=== PATIENT | male | born 1950 | race Two or more races ===

== ENCOUNTER 2022-11-05 18:40 | Inpatient (IN) | payer MEDICARE, OTHER ==
[~2022-11-05] VITALS: Ht 182.9 cm; Wt 92.8 kg
--- NOTE | 2022-11-05 18:51 | NUR ---
PT IS IN ROOM #2B. DR MORA EVALUATED THE PT.
[2022-11-05] MEDS ORDERED: METFORMIN (18:54)
[2022-11-05] MEDS ORDERED: KEPPRA (18:54)
[2022-11-05] MEDS ORDERED: METOPROLOL (18:54)
[2022-11-05] MEDS ORDERED: VANCOMYCIN IV 1,000 MG in IV DEXTROSE 5% 250 ML IV ONE (19:00)
[2022-11-05] MEDS ORDERED: IV NORMAL SALINE 1000 ML BAG IV ONE (19:00)
[2022-11-05] MEDS ORDERED: CEFEPIME HCL 1 G in IV DEXTROSE 5% 50 ML IV ONE (19:00)
--- NOTE | 2022-11-05 19:05 | NUR ---
Got report from Lemuel WATTS.
[2022-11-05] MEDS ORDERED: IV NORMAL SALINE 250 ML IV ONE (19:06)
[2022-11-05] MEDS ORDERED: SWABABLE VALVE TRANSFER SET EA MC ONE (19:06)
[2022-11-05] MEDS ORDERED: IOHEXOL 350 100 ML INFUS..BTL ONE (19:07)
[2022-11-05 19:20] LABS: HEMATOCRIT 31.3 % (36.7-47.1); MEAN CORPUSCULAR HEMOGLOBIN 21.5 uug (23.8-33.4); MEAN CORPUSCULAR VOLUME 67.4 fL (73.0-96.2); PLATELET COUNT (AUTO) 434 K/uL (152-348)
[2022-11-05] MEDS ORDERED: VANCOMYCIN IV 200 ML ONE (19:25)
[2022-11-05] MEDS ORDERED: CEFEPIME HCL 1 G VIAL ONE (19:25)
[2022-11-05 19:38] LABS: ALANINE AMINOTRANSFERASE 15 U/L (16-63); ALKALINE PHOSPHATASE 58 U/L (50-136); ASPARTATE AMINOTRANSFERASE 13 U/L (15-37); BILIRUBIN,DIRECT 0.1 mg/dL (0.0-0.2); BILIRUBIN,TOTAL 0.3 mg/dL (0.2-1.0); CARBON DIOXIDE 19 mmol/L (21-32); CHLORIDE 90 mmol/L (98-107); POTASSIUM 4.2 mmol/L (3.5-5.1); TOTAL PROTEIN, SERUM 6.7 g/dL (6.4-8.2)
--- NOTE | 2022-11-05 19:45 | NUR ---
Patient's daughter at bedside with patient. Patient is resting in bed rise and fall of chest noted.
[2022-11-05 19:48] LABS: UREA NITROGEN, BLOOD 94 mg/dL (7-18)
--- NOTE | 2022-11-05 20:21 | NUR ---
called [facility] for panel call. awaiting for Shanelle Lott NP to call back.
--- NOTE | 2022-11-05 21:48 | NUR ---
[facility] answering service called, was told on-call in now Naye GOMEZ
[2022-11-05 22:35] LABS: SITE, VBG LEFT BRACHIAL; VENT MODE, VBG ROOM AIR
--- NOTE | 2022-11-05 22:53 | NUR ---
Called third floor and gave report Mendoza WATTS.
--- NOTE | 2022-11-05 23:31 | NUR ---
Alexandra was transfererd upstairs to the thrid floor via gurney. STEFANIE Donaldson made aware of patient's arrival.
--- NOTE | 2022-11-05 23:45 | NUR ---
Received patient via gurney from ER. Pictures taken of left toe wound, dressed and bandaged. Patient in no acute distress, vitals WNL, denies SOB. Patient placed on tele monitor, sinus rhythm/sinus tachy. Will continue to monitor.
[2022-11-06] VITALS (28 sets, daily range): BP systolic 77–157; BP diastolic 38–88; TEMP 97.4–98.3; O2SAT 93–99
[2022-11-06 00:25] LABS: *BILIRUBIN,URIN NEGATIVE (NEGATIVE); *BLOOD, URINE 1+ (NEGATIVE); *CLARITY,URINE CLEAR (CLEAR); *COLOR,URINE YELLOW (YELLOW); *KETONES,URINE NEGATIVE (NEGATIVE); *UROBILINOGEN,URINE 0.2 E.U./dl (NORMAL); LEUKOCYTE ESTERASE ,URINE NEGATIVE (NEGATIVE); NITRITE, URINE NEGATIVE (NEGATIVE); UGLUCOSE NEGATIVE (NEGATIVE)
--- NOTE | 2022-11-06 00:45 | NUR ---
Lexy (Optical Scientist) spoke to daughter in regards to Nuclear Medicine Perfusion Lung Scan, Daughter verbally consented for patient to receive this treatment as the patient will not sign due to jehovah's witness beliefs (Shabbat). After speaking to patients daughter and daughter verbalizing consent for father to proceed with ordered procedure I witnessed consent. Daughter specified that patient is Okay to have the procedure, however can not physically sign due to Shabbat. Telephone consent with daughter, and another RN at bedside to witness.
[2022-11-06 00:58] LABS: WBC,URINE 0-3 /HPF (0-3)
[2022-11-06 00:59] LABS: BACTERIA,URINE MODERATE /HPF (NONE SEEN); SQUAMOUS EPITHELIAL CELL,UR MODERATE /HPF (NONE SEEN); URINE AMORPHOUS URATE MODERATE /HPF
[2022-11-06] MEDS ORDERED: REMEDY ESSENTIAL ZINC PASTE 113 GM TP PRN (02:45)
[2022-11-06] MEDS ORDERED: ALBUTEROL SULFATE 2.5 MG/3 ML NEBU NEB PRN (02:45)
[2022-11-06] MEDS ORDERED: DEXTROSE 50% 50 ML DISP.SYRIN IV PRN ×2 (02:45→14:45)
[2022-11-06] MEDS ORDERED: ONDANSETRON 4 MG/2 ML VIAL IV PRN (02:45)
[2022-11-06] MEDS ORDERED: IPRATROPIUM BROMIDE 0.5 MG/2.5 ML NEBU NEB PRN (02:45)
[2022-11-06] MEDS ORDERED: CEFEPIME HCL 1 G VIAL ONE (05:37)
[2022-11-06] MEDS ORDERED: CEFEPIME HCL 1 G in IV DEXTROSE 5% 50 ML IV SCH (06:00)
[2022-11-06] MEDS: PANTOPRAZOLE SODIUM 40 MG TABLET.DR PO SCH (06:36)
[2022-11-06] MEDS: BLOOD SUGAR DIAGNOSTIC 1 EACH STRIP VI SCH ×4 (06:41→21:00)
[2022-11-06 06:42] LABS: MEAN CORPUSCULAR HEMOGLOBIN 21.4 uug (23.8-33.4); MEAN CORPUSCULAR VOLUME 66.9 fL (73.0-96.2); PLATELET COUNT (AUTO) 392 K/uL (152-348)
[2022-11-06 06:57] LABS: CREATINE KINASE, TOTAL 52 U/L (39-308)
[2022-11-06] MEDS: levETIRAcetam 500 MG TABLET PO SCH ×2 (08:11→21:04)
[2022-11-06] MEDS ORDERED: VANCOMYCIN IV 750 MG in IV DEXTROSE 5% 250 ML IV ONE (09:00)
[2022-11-06 09:02] LABS: CARBON DIOXIDE 18 mmol/L (21-32); CHLORIDE 98 mmol/L (98-107); CREATININE 3.8 mg/dL (0.6-1.3); MAGNESIUM 1.4 mg/dL (1.8-2.4); PHOSPHOROUS 3.3 mg/dL (2.5-4.9); POTASSIUM 4.1 mmol/L (3.5-5.1)
[2022-11-06 09:12] LABS: THYROID STIMULATING HORMONE 1.794 mIU/mL (0.358-3.740)
[2022-11-06 09:20] LABS: UREA NITROGEN, BLOOD 89 mg/dL (7-18)
[2022-11-06 10:01] LABS: CARBON DIOXIDE 19 mmol/L (21-32); CHLORIDE 99 mmol/L (98-107); CREATININE 3.7 mg/dL (0.6-1.3)
[2022-11-06 10:05] LABS: UREA NITROGEN, BLOOD 88 mg/dL (7-18)
[2022-11-06 10:12] LABS: CHOLESTEROL 115 mg/dL (<200); HDL CHOLESTEROL 20 mg/dL (40-60); TRIGLYCERIDES 192 MG/DL (30-150)
--- NOTE | 2022-11-06 11:38 | NUR ---
Pt's daughter at bedside pt. was not covered with Insulin for Sliding scale. As stated by daughter "my dad is not eating, his appetite is been low". medication hold pt. has not eaten.
--- NOTE | 2022-11-06 12:10 | NUR ---
Pt. with sbp in the low to mid-80's placed on reverse Trendelenburg sbp of 88/39 HR of 88 and saturation of 93% on RA patient with c/of of severe weakness. oriented to name. Pt's daughter at bedside. Addendum: 11/06/22 at 1222 by QUAN HUTCHINS RN Attending Dr. Booth called to be notified message left with automatic spinning lathe operator awaiting call back.
--- NOTE | 2022-11-06 12:26 | NUR ---
A call back from Dr. Booth report given orders for 1 liter NS bolus received as well as to informed ID to see patient. As stated by MD. if SBP does not go above 90 may start pt. on levophed.
[2022-11-06] MEDS ORDERED: IV NS 1000 ML 1,000 ML IV ONE (12:30)
--- NOTE | 2022-11-06 12:47 | NUR ---
When bolus started pt. with c/of pain at IV site area with no s/s of infiltration or leaking IV line patent both daughter at bedside and they were informed that new IV line will be inserted and both agreed to pt's complains. 10 minutes later pt. refuse new IV insertion stating the old one is not painful anymore. Both daughters requested procedure to be stop.
[2022-11-06] MEDS: IV NS 1000 ML 1,000 ML IV PRN ×2 (12:50→22:53)
[2022-11-06 12:51] LABS: *CREATININE,URINE 122.9 mg/dL (30-125); *URINE TOTAL PROTEIN RANDOM 57.9 mg/dL (<150/24HR)
--- NOTE | 2022-11-06 13:15 | NUR ---
With bolus almost finished pt's sbp of 77/49 HR of 88 patient sleeping intermittently as requested by one of the daughters at bedside "lets wait for fluid to be finished and give him a chance to increase SBP"
[2022-11-06] MEDS ORDERED: METF-442 PO (13:18)
[2022-11-06] MEDS ORDERED: TRAM50TA2 PO (13:19)
[2022-11-06] MEDS ORDERED: PREG75CA PO (13:19)
[2022-11-06] MEDS ORDERED: HYDR-3972 PO (13:20)
[2022-11-06] MEDS ORDERED: GLIP5TAB13 PO (13:21)
[2022-11-06] MEDS ORDERED: ALLO100T56 GT (13:21)
[2022-11-06] MEDS ORDERED: METO-357 PO (13:22)
[2022-11-06] MEDS ORDERED: LISI-782 PO (13:23)
[2022-11-06] MEDS ORDERED: CELE200C PO (13:23)
[2022-11-06] MEDS ORDERED: PIOG30TA10 PO (13:24)
[2022-11-06] MEDS ORDERED: DUTA0.5C37 PO (13:25)
[2022-11-06] MEDS ORDERED: TAMS-3 PO (13:25)
[2022-11-06] MEDS ORDERED: LEVE100S GT (13:25)
--- NOTE | 2022-11-06 13:26 | NUR ---
a call to ID services as requested by Dr. Escamilla to informed Clinton of consult ordered by attending. I spoke with Md on the phone and as stated "I'll see the patient tomorrow".
[2022-11-06] MEDS ORDERED: NOREPINEPHRINE BITARTRATE 32 MG in IV NORMAL SALINE 218 ML IV PRN (13:30)
--- NOTE | 2022-11-06 14:11 | NUR ---
Spoke with Dr. Booth orders for stag ABG received and to transfer pt. ICU status start levophed to target MAP of 65 or above.
[2022-11-06 14:26] LABS: ABG HCO3 14.2 mmol/L; ABG PCO2 25.7 mmHg (35.0-45.0); ABG PH 7.361 (7.350-7.450); ABG PO2 86.6 mmHg (75.0-100.0); ABG SITE LEFT BRACHIAL; ABG TOTAL HEMOGLOBIN 8.8 G/dL (13.5-18.0); COHb 0.5 % (0.5-1.5); MetHb 0.2 % (0.0-1.5); O2Hb 94.5 % (94.0-97.0); VENT MODE ROOM AIR
[2022-11-06] MEDS ORDERED: INSULIN REGULAR, HUMAN 300 UNIT/3 ML VIAL SQ PRN (14:45)
--- NOTE | 2022-11-06 14:45 | NUR ---
Patient brought down to the emergency room upgraded to ICU status and started on levophed drip as ordered. Pt's daughter Caprice Santos at bedside.
[2022-11-06] MEDS ORDERED: SODIUM BICARBONATE 8.4% 50 MEQ/50 ML DISP.SYRIN IV ONE (15:00)
[2022-11-06 16:20] LABS: EOSINOPHILS % (MANUAL) 4 % (0-8); LYMPHOCYTES % (MANUAL) 7 % (20-40); MONOCYTES % (MANUAL) 13 % (2-10); NEUTROPHILS % (MANUAL) 76 % (42-75)
[2022-11-06] MEDS ORDERED: BLOOD SUGAR DIAGNOSTIC 1 EACH STRIP VI SCH (16:30)
[2022-11-06] MEDS ORDERED: METRONIDAZOLE 500 MG TABLET ONE ×2 (17:18→20:58)
[2022-11-06] MEDS: METRONIDAZOLE 500 MG TABLET PO SCH ×2 (17:22→21:04)
[2022-11-06] MEDS: SODIUM HYPOCHLORITE 0.125% (QUARTER STRENGTH) 473 ML BOTTLE TP SCH (17:25)
[2022-11-06] MEDS: INSULIN REGULAR, HUMAN 300 UNIT/3 ML VIAL SQ PRN ×2 (17:35→21:10)
[2022-11-06] MEDS ORDERED: levETIRAcetam 250 MG TABLET ONE (20:58)
[2022-11-06] MEDS: REMEDY ESSENTIAL ZINC PASTE 113 GM TOP PRN (22:32)
[2022-11-07] VITALS (32 sets, daily range): BP systolic 89–150; BP diastolic 40–76; TEMP 97.9–98.7; O2SAT 95–98
--- NOTE | 2022-11-07 00:01 | NUR ---
Explained to dtr's via telephone; pt's sodium is already low & that by drinking large amounts 'Free H2O,' would not be good, he would deplete more sodium.
[2022-11-07 04:59] LABS: HEMATOCRIT 30.1 % (36.7-47.1); MEAN CORPUSCULAR HEMOGLOBIN 21.6 uug (23.8-33.4); MEAN CORPUSCULAR VOLUME 67.8 fL (73.0-96.2); PLATELET COUNT (AUTO) 440 K/uL (152-348)
[2022-11-07 05:49] LABS: MAGNESIUM 1.3 mg/dL (1.8-2.4); PHOSPHOROUS 2.5 mg/dL (2.5-4.9)
[2022-11-07 05:55] LABS: CARBON DIOXIDE 23 mmol/L (21-32); CHLORIDE 108 mmol/L (98-107); CREATININE 1.9 mg/dL (0.6-1.3); POTASSIUM 3.5 mmol/L (3.5-5.1); UREA NITROGEN, BLOOD 46 mg/dL (7-18)
[2022-11-07 05:56] LABS: ALKALINE PHOSPHATASE 58 U/L (50-136); ASPARTATE AMINOTRANSFERASE 17 U/L (15-37); BILIRUBIN,TOTAL 0.3 mg/dL (0.2-1.0)
[2022-11-07 05:57] LABS: ALANINE AMINOTRANSFERASE 14 U/L (16-63); TOTAL PROTEIN, SERUM 6.3 g/dL (6.4-8.2)
[2022-11-07] MEDS ORDERED: METRONIDAZOLE 500 MG TABLET ONE (06:13)
[2022-11-07] MEDS: METRONIDAZOLE 500 MG TABLET PO SCH (06:17)
[2022-11-07 06:20] LABS: EOSINOPHILS % (MANUAL) 3 % (0-8); LYMPHOCYTES % (MANUAL) 8 % (20-40); MONOCYTES % (MANUAL) 6 % (2-10); NEUTROPHILS % (MANUAL) 83 % (42-75)
[2022-11-07] MEDS ORDERED: HEPARIN SODIUM,PORCINE 5,000 UNITS/ML VIAL ONE ×2 (06:41)
[2022-11-07] MEDS ORDERED: HEPARIN/D5W DRIP 500 ML ONE (06:42)
[2022-11-07] MEDS ORDERED: HEPARIN/D5W DRIP 500 ML IV PRN (07:00)
[2022-11-07] MEDS: PANTOPRAZOLE SODIUM 40 MG TABLET.DR PO SCH ×2 (07:00→08:02)
[2022-11-07] MEDS ORDERED: HEPARIN SODIUM,PORCINE 5,000 UNITS/ML VIAL IV ONE (07:00)
--- NOTE | 2022-11-07 07:00 | NUR ---
the I&O documented by me at 0700 I did it as a request from Donna Beasley who forgot to documented.
[2022-11-07] MEDS ORDERED: CEFEPIME HCL 1 G in IV DEXTROSE 5% 50 ML IV SCH (08:00)
[2022-11-07] MEDS ORDERED: VANCOMYCIN IV 1,000 MG in IV DEXTROSE 5% 250 ML IV ONE (08:00)
[2022-11-07] MEDS: BLOOD SUGAR DIAGNOSTIC 1 EACH STRIP VI SCH ×4 (08:01→21:00)
[2022-11-07] MEDS ORDERED: PANTOPRAZOLE SODIUM 40 MG TABLET.DR PO ONE (08:01)
[2022-11-07] MEDS: CEFEPIME HCL 2 G in IV DEXTROSE 5% 100 ML IV SCH ×2 (08:06→20:07)
[2022-11-07] MEDS ORDERED: levETIRAcetam 250 MG TABLET ONE (08:19)
[2022-11-07] MEDS: SODIUM HYPOCHLORITE 0.125% (QUARTER STRENGTH) 473 ML BOTTLE TP SCH ×2 (08:20→17:01)
[2022-11-07] MEDS: levETIRAcetam 500 MG TABLET PO SCH ×2 (08:20→21:48)
[2022-11-07] MEDS: INSULIN REGULAR, HUMAN 300 UNIT/3 ML VIAL SQ PRN ×3 (08:22→16:57)
--- NOTE | 2022-11-07 08:30 | NUR ---
Pt seen by Dr. Clay
--- NOTE | 2022-11-07 09:02 | NUR ---
Pt seen by ID, left foot wound cultured and dressing changed. Tissue dark pink, scant drainage.
--- NOTE | 2022-11-07 11:00 | NUR ---
RFA 18g HL not patent, d/c'd. New 20g saline lock inserted, receiving Magnesioum replacement per ordew #1 of 3 doses
--- NOTE | 2022-11-07 11:00 | NUR ---
Pt seen and examined by Dr Nicholas, order to d/c heparin gtt. afternoon labs PTT canceled.
[2022-11-07] MEDS: VANCOMYCIN FOR PO/GT/NG USE PO SCH ×2 (12:03→17:32)
[2022-11-07] MEDS: MAGNESIUM SULFATE/D5W 100 ML IV SCH ×3 (13:00→15:30)
--- NOTE | 2022-11-07 14:00 | NUR ---
VSS, Loco gtt remains at low dose SBP maintained >100. Pt with frequent liquid stools, skin care provided, moisture barrier to area, skin remains intact.
[2022-11-07] MEDS ORDERED: MAGNESIUM SULFATE/D5W 200 ML ONE (14:31)
--- NOTE | 2022-11-07 15:09 | NUR ---
Daughter in to visit, updated on Pts condition verbalized understanding
[2022-11-07] MEDS ORDERED: SEMA1PEN SQ (15:55)
[2022-11-07] MEDS ORDERED: LEVE500T9 PO (16:02)
[2022-11-07] MEDS ORDERED: METO-356 PO (16:03)
[2022-11-07] MEDS ORDERED: METO-357 PO (16:04)
[2022-11-07] MEDS ORDERED: ASPI81TA31 PO (16:09)
[2022-11-07] MEDS ORDERED: CHOL100045 PO (16:11)
[2022-11-07] MEDS ORDERED: THIA100T88 PO (16:16)
[2022-11-07] MEDS ORDERED: LORA10TA61 PO (16:16)
[2022-11-07] MEDS ORDERED: ACETAMINOPHEN 650 MG SUPP.RECT RC ONE (16:41)
[2022-11-07] MEDS: CLOTRIMAZOLE 1% CREAM 30 GM TUBE TOP SCH (17:00)
--- NOTE | 2022-11-07 17:00 | NUR ---
VSS, pt awake denies pain, Right foot dressing changed, wound dark red, scant drainage, tolerated well.
[2022-11-07] MEDS ORDERED: CEFEPIME HCL 1 G VIAL ONE (19:59)
--- NOTE | 2022-11-07 20:00 | NUR ---
0800 received in bed, able to make needs known no signs of distress, called family member and update them about patient progress on Levophed 0.03 mcg and NS @100cc blood pressure 102 /67 heart rate 77 able to move all extremities, sodium is 140 1000 family is at bed side, patient refused to eat and AccuStick.
[2022-11-07] MEDS ORDERED: LORATADINE 10 MG TAB.RAPDIS PO SCH (21:00)
[2022-11-07] MEDS: THIAMINE HCL 100 MG TABLET PO SCH (21:48)
[2022-11-07] MEDS: TAMSULOSIN HCL 0.4 MG CAP.SR.24H PO SCH (21:48)
[2022-11-07] MEDS: IV NS 1000 ML 1,000 ML IV PRN (23:06)
[2022-11-08] VITALS (32 sets, daily range): BP systolic 94–139; BP diastolic 41–80; TEMP 97.3–98.8; O2SAT 93–97
[2022-11-08] MEDS: VANCOMYCIN FOR PO/GT/NG USE PO SCH ×5 (00:15→23:30)
--- NOTE | 2022-11-08 04:00 | NUR ---
refused blood sugar and bed bath patient's sister try convincing him to eat and to have a bed bath, but patient refused asked patient if he wants pain medication he said no but grimace when touch. 0600 called family to talk to patient to get blood draw and to have a bath, he continued to refuse. Levophed decreased to 0.02 mcg.urine output is 60cc/hr x2 BM smear.
[2022-11-08] MEDS: PANTOPRAZOLE SODIUM 40 MG TABLET.DR PO SCH (06:20)
[2022-11-08] MEDS ORDERED: glipiZIDE 5 MG TABLET PO SCH (07:30)
[2022-11-08 07:40] LABS: CREATININE 1.1 mg/dL (0.6-1.3); MAGNESIUM 1.3 mg/dL (1.8-2.4); POTASSIUM 3.3 mmol/L (3.5-5.1)
[2022-11-08] MEDS: BLOOD SUGAR DIAGNOSTIC 1 EACH STRIP VI SCH ×4 (07:56→20:29)
[2022-11-08] MEDS: INSULIN REGULAR, HUMAN 300 UNIT/3 ML VIAL SQ PRN ×3 (07:58→17:17)
[2022-11-08] MEDS: levETIRAcetam 500 MG TABLET PO SCH ×2 (08:00→20:10)
[2022-11-08] MEDS: CEFEPIME HCL 2 G in IV DEXTROSE 5% 100 ML IV SCH ×3 (08:00→22:41)
[2022-11-08] MEDS: DUTASTERIDE 0.5 MG CAPSULE PO SCH (08:00)
[2022-11-08] MEDS: ASPIRIN 81 MG TAB.CHEW PO SCH (08:02)
[2022-11-08] MEDS: VANCOMYCIN IV 1,250 MG in IV DEXTROSE 5% 250 ML IV SCH ×2 (08:08→20:09)
[2022-11-08] MEDS: CLOTRIMAZOLE 1% CREAM 30 GM TUBE TOP SCH ×3 (08:08→20:19)
[2022-11-08] MEDS: SODIUM HYPOCHLORITE 0.125% (QUARTER STRENGTH) 473 ML BOTTLE TP SCH ×2 (08:09→20:14)
[2022-11-08] MEDS ORDERED: POTASSIUM CHLORIDE 20 MEQ TAB.PRT.SR PO ONE (08:30)
[2022-11-08] MEDS: MAGNESIUM SULFATE/D5W 100 ML IV SCH ×2 (08:35→09:45)
[2022-11-08] MEDS ORDERED: LISINOPRIL 5 MG TABLET PO SCH (09:00)
[2022-11-08] MEDS ORDERED: levETIRAcetam 500 MG TABLET PO SCH (09:00)
--- NOTE | 2022-11-08 10:37 | NUR ---
Pt.family at bedside,updated with pt.condition and plan of care.
[2022-11-08] MEDS: IV NS 1000 ML 1,000 ML IV PRN (13:50)
--- NOTE | 2022-11-08 14:09 | NUR ---
WOUND CARE CONSULT: PT PRESENTS WITH LEFT FOOT DRESSING WHICH IS DRY AND INTACT. SURGICAL WOUND FOLLOWED BY DR FAM. DEFER TO DPM FOR WOUND TREATMENT PLAN OF LOWER EXTREMITY. SLIGHT RASH NOTED TO BUTTOCKS. RECOMMENDATIONS MADE FOR SKIN PROTECTION. DISCUSSED WITH NURSING STAFF. MD IN AGREEMENT WITH PLAN OF CARE.
[2022-11-08] MEDS ORDERED: CLOTRIMAZOLE 1% CREAM 30 GM TUBE TOP SCH (17:00)
[2022-11-08] MEDS: glipiZIDE 5 MG TABLET PO SCH (17:18)
[2022-11-08] MEDS: GLUCERNA SHAKE 237 ML CAN PO SCH (17:19)
[2022-11-08] MEDS: REMEDY ESSENTIAL ZINC PASTE 113 GM TOP PRN (17:46)
--- NOTE | 2022-11-08 20:00 | NUR ---
Received in bed awake alert x4 able to make needs known, room air saturation is 95% pain 6/10 left knee, tramadol given po left foot dressing clean and dry lungs clear, incontinent stool x1 cleaned and turned left side. update family regarding patient process.
[2022-11-08] MEDS: THIAMINE HCL 100 MG TABLET PO SCH (20:10)
[2022-11-08] MEDS: TAMSULOSIN HCL 0.4 MG CAP.SR.24H PO SCH (20:10)
[2022-11-08] MEDS: LORATADINE 10 MG TABLET PO SCH (20:11)
[2022-11-08] MEDS: MUPIROCIN 2% OINT 22 GM TUBE NS SCH (20:14)
[2022-11-08] MEDS: TRAMADOL HCL 50 MG TABLET PO PRN (20:23)
[2022-11-09] VITALS (7 sets, daily range): BP systolic 100–130; BP diastolic 56–81; TEMP 97–98.5; O2SAT 94–97
[2022-11-09] MEDS: VANCOMYCIN FOR PO/GT/NG USE PO SCH ×3 (05:55→17:31)
[2022-11-09] MEDS: CEFEPIME HCL 2 G in IV DEXTROSE 5% 100 ML IV SCH ×2 (05:55→14:30)
[2022-11-09] MEDS: IV NS 1000 ML 1,000 ML IV PRN (05:59)
[2022-11-09] MEDS: PANTOPRAZOLE SODIUM 40 MG TABLET.DR PO SCH (06:30)
[2022-11-09] MEDS: TRAMADOL HCL 50 MG TABLET PO PRN (07:19)
[2022-11-09] MEDS: BLOOD SUGAR DIAGNOSTIC 1 EACH STRIP VI SCH ×4 (07:30→21:56)
[2022-11-09] MEDS: PROTEIN SUPPLEMENT (PROSTAT) 30 ML LIQUID PO SCH ×2 (08:00→09:40)
[2022-11-09] MEDS: GLUCERNA SHAKE 237 ML CAN PO SCH ×2 (08:00→17:00)
[2022-11-09] MEDS: VANCOMYCIN IV 1,250 MG in IV DEXTROSE 5% 250 ML IV SCH (08:31)
[2022-11-09] MEDS ORDERED: METOPROLOL SUCCINATE XL 25 MG TAB.SR.24H PO SCH (09:00)
[2022-11-09] MEDS ORDERED: METOPROLOL SUCCINATE XL 50 MG TAB.SR.24H PO SCH (09:00)
[2022-11-09] MEDS ORDERED: LISINOPRIL 5 MG TABLET PO SCH (09:00)
[2022-11-09] MEDS: ASPIRIN 81 MG TAB.CHEW PO SCH (09:38)
[2022-11-09] MEDS: levETIRAcetam 500 MG TABLET PO SCH ×2 (09:38→21:41)
[2022-11-09] MEDS: glipiZIDE 5 MG TABLET PO SCH ×2 (09:39→17:31)
[2022-11-09] MEDS: DUTASTERIDE 0.5 MG CAPSULE PO SCH (09:39)
[2022-11-09] MEDS: MUPIROCIN 2% OINT 22 GM TUBE NS SCH ×2 (09:41→21:48)
[2022-11-09] MEDS: SODIUM HYPOCHLORITE 0.125% (QUARTER STRENGTH) 473 ML BOTTLE TP SCH ×2 (09:44→21:50)
[2022-11-09] MEDS: CLOTRIMAZOLE 1% CREAM 30 GM TUBE TOP SCH ×4 (09:46→21:00)
[2022-11-09] MEDS: METOPROLOL TARTRATE 25 MG TABLET PO SCH ×2 (11:15→21:45)
--- NOTE | 2022-11-09 11:23 | NUR ---
per case management, CTA to be done November 10.
[2022-11-09] MEDS: ACETAMINOPHEN 325 MG TABLET PO PRN (12:29)
--- NOTE | 2022-11-09 12:29 | NUR ---
Patient c/o left hand pain 08/16, medicated as per order with tylenol 650 . Family remains at bedside updated on plan of care, will continue to monitor.
[2022-11-09] MEDS: INSULIN REGULAR, HUMAN 300 UNIT/3 ML VIAL SQ PRN (17:38)
[2022-11-09] MEDS ORDERED: POTASSIUM CHLORIDE 10 MEQ TAB.PRT.SR PO ONE (17:45)
[2022-11-09] MEDS ORDERED: CEFEPIME HCL 2 G in IV DEXTROSE 5% 100 ML IV SCH (18:00)
[2022-11-09 19:31] LABS: POTASSIUM 3.6 mmol/L (3.5-5.1)
--- NOTE | 2022-11-09 20:00 | NUR ---
Received patient laying in bed with sister at bedside. Patient in no acute distress, vitals WNL, denies SOB. Patient placed on tele monitor, sinus rhythm. Will continue to monitor and continue plan of care.
[2022-11-09] MEDS: TAMSULOSIN HCL 0.4 MG CAP.SR.24H PO SCH (21:41)
[2022-11-09] MEDS: DOXYCYCLINE HYCLATE 100 MG TABLET PO SCH (21:41)
[2022-11-09] MEDS: THIAMINE HCL 100 MG TABLET PO SCH (21:45)
[2022-11-09] MEDS: LORATADINE 10 MG TABLET PO SCH (21:46)
[2022-11-10] VITALS: BP 130/57; TEMP 96.5; TEMP 98.6; O2SAT 96
[2022-11-10] MEDS: VANCOMYCIN FOR PO/GT/NG USE PO SCH ×5 (00:50→23:59)
[2022-11-10] MEDS: HYDROCODONE/APAP 5-325MG TABLET PO PRN ×2 (00:59→06:39)
[2022-11-10] MEDS ORDERED: CEFEPIME HCL 2 G in IV DEXTROSE 5% 100 ML IV SCH (02:00)
[2022-11-10] MEDS ORDERED: CEFEPIME HCL 1 G VIAL ONE (02:08)
[2022-11-10 04:00] VITALS: BP 112/54; TEMP 98.7; O2SAT 95
[2022-11-10] MEDS: PANTOPRAZOLE SODIUM 40 MG TABLET.DR PO SCH (06:07)
[2022-11-10] MEDS: BLOOD SUGAR DIAGNOSTIC 1 EACH STRIP VI SCH ×4 (06:12→20:53)
[2022-11-10] MEDS: IV NS 1000 ML 1,000 ML IV PRN (06:29)
[2022-11-10 06:49] LABS: HEMATOCRIT 27.8 % (36.7-47.1); MEAN CORPUSCULAR HEMOGLOBIN 21.6 uug (23.8-33.4); MEAN CORPUSCULAR VOLUME 66.9 fL (73.0-96.2); PLATELET COUNT (AUTO) 350 K/uL (152-348)
--- NOTE | 2022-11-10 07:07 | NUR ---
Verified =onsent via daughter Addendum: 11/10/22 at 0708 by SUNDAY VEGA RN Wrong Patient
--- NOTE | 2022-11-10 07:08 | NUR ---
Spoke to daughter, Hans. Asked daughter to explain procedure of CT Angiogram of heart to patient. Witnessed patient signing consent.
[2022-11-10 07:17] LABS: ALANINE AMINOTRANSFERASE 16 U/L (16-63); ALKALINE PHOSPHATASE 49 U/L (50-136); ASPARTATE AMINOTRANSFERASE 26 U/L (15-37); BILIRUBIN,TOTAL 0.3 mg/dL (0.2-1.0); CARBON DIOXIDE 25 mmol/L (21-32); CHLORIDE 102 mmol/L (98-107); PHOSPHOROUS 1.4 mg/dL (2.5-4.9); POTASSIUM 3.1 mmol/L (3.5-5.1); TOTAL PROTEIN, SERUM 5.7 g/dL (6.4-8.2); UREA NITROGEN, BLOOD 8 mg/dL (7-18)
--- NOTE | 2022-11-10 07:30 | NUR ---
NIGHT NURSE REPORT RECEIVED: 1) MENTAL STATE: AO x 3 - speaks Farsi only. 2) BREATHING: Patient on RA - , sat in the high 90s. No sign of distress observed. 3) SAFETY: Bedbound - Bed in low position, bed alarm activated, floor free of clutter and call garay within reach. 4) CIRCULATION: No signs of cyanosis observed. 5) MOBILITY: Patient on bed rest - needs maximum assistance with all care. 6) BOWEL MOVEMENT: No Bowels at the time of this report. 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 8) SKIN: Patient has peeling skin to the sacral and scrotum 9) BLOOD SUGAR: - 111 this morning no cover required. 10) PLAN: (i) Will continue to treat patient accordingly. (ii) Due CT Angio at [place]:Consent signed and checklist completed.
[2022-11-10 08:00] VITALS: BP 131/51; TEMP 98.1; O2SAT 96
[2022-11-10 08:06] LABS: IRON, SERUM 14 ug/dL (50-175)
[2022-11-10] MEDS: PROTEIN SUPPLEMENT (PROSTAT) 30 ML LIQUID PO SCH (08:13)
[2022-11-10] MEDS: GLUCERNA SHAKE 237 ML CAN PO SCH (08:13)
[2022-11-10] MEDS ORDERED: POTASSIUM CHLORIDE 20 MEQ TAB.PRT.SR PO ONE (08:30)
[2022-11-10] MEDS: CLOTRIMAZOLE 1% CREAM 30 GM TUBE TOP SCH ×4 (09:00→20:51)
[2022-11-10] MEDS: METOPROLOL TARTRATE 25 MG TABLET PO SCH ×2 (09:00→20:45)
[2022-11-10] MEDS: ASPIRIN 81 MG TAB.CHEW PO SCH (09:12)
[2022-11-10] MEDS: DOXYCYCLINE HYCLATE 100 MG TABLET PO SCH (09:12)
[2022-11-10] MEDS: glipiZIDE 5 MG TABLET PO SCH ×2 (09:12→17:56)
[2022-11-10] MEDS: levETIRAcetam 500 MG TABLET PO SCH ×2 (09:13→20:45)
[2022-11-10] MEDS: DUTASTERIDE 0.5 MG CAPSULE PO SCH (09:13)
[2022-11-10] MEDS: MAGNESIUM SULFATE/D5W 100 ML IV SCH ×3 (09:13→15:48)
[2022-11-10] MEDS: MUPIROCIN 2% OINT 22 GM TUBE NS SCH ×2 (10:19→20:50)
[2022-11-10] MEDS: SODIUM HYPOCHLORITE 0.125% (QUARTER STRENGTH) 473 ML BOTTLE TP SCH ×2 (10:24→20:51)
--- NOTE | 2022-11-10 11:30 | NUR ---
AM MEDICATION/TREATMENT: 1) Blood sugar - not recorded 2) Vanco not administered. 3) Patient left for CT Angio at [place]. 4) Spoke to Juliette in pharmacy - to call them when he returns and collect bag of magnesium from pharmacy.
--- NOTE | 2022-11-10 12:15 | NUR ---
PHYSIO ASSESSMENT - Patient very weak - not able to bear weight - sat at the age of bed and back to bed
--- NOTE | 2022-11-10 15:00 | NUR ---
MAGNESIUM IV INFUSION RECOMMENCED PER REGIME
--- NOTE | 2022-11-10 15:50 | NUR ---
MIDLINE 18G INSERTED - Left Upper Arm
[2022-11-10 15:57] VITALS: BP 136/52; TEMP 98.5; O2SAT 97
[2022-11-10] MEDS ORDERED: NEUTRA PHOS PACKET PO ONE (16:00)
--- NOTE | 2022-11-10 16:00 | NUR ---
WOUND MANAGEMENT: 1) Dressing changed according to care plan. 2) Wound clean - pink/reddish, no odor, no drainage, and granulating. 3) No swelling or sign of infection or inflammation observed - and patient is apyrexial
[2022-11-10] MEDS: INSULIN REGULAR, HUMAN 300 UNIT/3 ML VIAL SQ PRN ×2 (16:59→21:02)
[2022-11-10] MEDS: ENSURE ENLIVE (VAN) 240 ML LIQUID PO SCH (17:28)
--- NOTE | 2022-11-10 18:20 | NUR ---
END OF SHIFT REPORT: 1) Patient is having the last bag of Magnesium as per regime 2) PM Medication administered as prescribed. 3) Patient had x2 episodes of very soft stool - offensive - C-Diff smell. 4) Patient on oral Vancomycin administered as prescribed. 5) No sign of discomfort, sob, pain or distress observed. 6) Will endorse care accordingly to night staff, who will continue to treat patient accordingly.
--- NOTE | 2022-11-10 19:30 | NUR ---
Received patient laying in bed with daughter at bedside. Patient in no acute distress, vitals WNL, denies SOB. Patient on tele monitor, sinus rhythm. Will continue to monitor and continue plan of care.
[2022-11-10] MEDS: THIAMINE HCL 100 MG TABLET PO SCH (20:44)
[2022-11-10] MEDS: TAMSULOSIN HCL 0.4 MG CAP.SR.24H PO SCH (20:44)
[2022-11-10] MEDS: LORATADINE 10 MG TABLET PO SCH (20:44)
[2022-11-10 21:09] VITALS: BP 113/83; TEMP 98.2; O2SAT 98
[2022-11-10] MEDS: ACETAMINOPHEN 325 MG TABLET PO PRN (23:59)
[2022-11-11 00:09] VITALS: BP 116/61; TEMP 99.6; O2SAT 94
[2022-11-11 04:29] VITALS: BP 137/59; TEMP 98; O2SAT 97
--- NOTE | 2022-11-11 05:25 | NUR ---
Patient rested well throughout the night. Patient in no acute distress. Complaints of hand pain and pain medication given. Vitals WNL, denies SOB. Patient on tele monitor, sinus rhythm. Needs attended to and met. Continue to monitor and continue plan of care.
[2022-11-11] MEDS: VANCOMYCIN FOR PO/GT/NG USE PO SCH ×3 (06:13→17:13)
[2022-11-11] MEDS: PANTOPRAZOLE SODIUM 40 MG TABLET.DR PO SCH (06:13)
[2022-11-11] MEDS: BLOOD SUGAR DIAGNOSTIC 1 EACH STRIP VI SCH ×4 (06:17→20:55)
[2022-11-11 07:23] LABS: HEMATOCRIT 30.8 % (36.7-47.1); MEAN CORPUSCULAR HEMOGLOBIN 21.5 uug (23.8-33.4); MEAN CORPUSCULAR VOLUME 67.4 fL (73.0-96.2); PLATELET COUNT (AUTO) 354 K/uL (152-348)
[2022-11-11 07:36] LABS: ALANINE AMINOTRANSFERASE 19 U/L (16-63); ALKALINE PHOSPHATASE 63 U/L (50-136); ASPARTATE AMINOTRANSFERASE 27 U/L (15-37); BILIRUBIN,TOTAL 0.3 mg/dL (0.2-1.0); CARBON DIOXIDE 27 mmol/L (21-32); CHLORIDE 101 mmol/L (98-107); FERRITIN 436 ng/mL (26-388); MAGNESIUM 1.4 mg/dL (1.8-2.4); PHOSPHOROUS 1.9 mg/dL (2.5-4.9); POTASSIUM 3.2 mmol/L (3.5-5.1); TOTAL PROTEIN, SERUM 6.4 g/dL (6.4-8.2); UREA NITROGEN, BLOOD 12 mg/dL (7-18)
[2022-11-11] MEDS: ASPIRIN 81 MG TAB.CHEW PO SCH (08:13)
[2022-11-11] MEDS: levETIRAcetam 500 MG TABLET PO SCH ×2 (08:13→20:45)
[2022-11-11] MEDS: DUTASTERIDE 0.5 MG CAPSULE PO SCH (08:13)
[2022-11-11] MEDS: glipiZIDE 5 MG TABLET PO SCH ×2 (08:13→17:13)
[2022-11-11] MEDS: METOPROLOL TARTRATE 25 MG TABLET PO SCH ×2 (08:14→20:46)
[2022-11-11] MEDS: MUPIROCIN 2% OINT 22 GM TUBE NS SCH ×2 (08:26→20:52)
[2022-11-11] MEDS: CLOTRIMAZOLE 1% CREAM 30 GM TUBE TOP SCH ×3 (08:26→20:47)
[2022-11-11] MEDS: ENSURE ENLIVE (VAN) 240 ML LIQUID PO SCH ×3 (08:27→17:11)
[2022-11-11] MEDS: SODIUM HYPOCHLORITE 0.125% (QUARTER STRENGTH) 473 ML BOTTLE TP SCH ×2 (09:57→20:48)
[2022-11-11] MEDS ORDERED: POTASSIUM CHLORIDE 20 MEQ TAB.PRT.SR PO ONE (10:00)
[2022-11-11] MEDS: MAGNESIUM SULFATE/D5W 100 ML IV SCH ×4 (10:04→13:37)
[2022-11-11 10:31] LABS: IRON, SERUM 16 ug/dL (50-175)
[2022-11-11 11:52] VITALS: BP 112/52; TEMP 97.6; O2SAT 95
[2022-11-11] MEDS: INSULIN REGULAR, HUMAN 300 UNIT/3 ML VIAL SQ PRN ×3 (12:07→20:53)
[2022-11-11 15:48] VITALS: BP 118/60; TEMP 97.6; O2SAT 96
[2022-11-11] MEDS ORDERED: NEUTRA PHOS PACKET PO ONE (16:00)
[2022-11-11] MEDS: IV NS 1000 ML 1,000 ML IV PRN (16:46)
--- NOTE | 2022-11-11 19:30 | NUR ---
Received patient lying in bed. AAOx3. In no acute distress. Denies any pain or SOB. NSR on tele with HR of 77/min. Midline on left upper arm, PIV on left FA and right hand intact and patent. IVF infusing. Dressing on right 2nd toe clean, dry and intact. Isolation precaution observed. Needs assessed and attended to. Safety measure initiated and call light within reached.
[2022-11-11] MEDS: LORATADINE 10 MG TABLET PO SCH (20:45)
[2022-11-11] MEDS: TAMSULOSIN HCL 0.4 MG CAP.SR.24H PO SCH (20:45)
[2022-11-11] MEDS: THIAMINE HCL 100 MG TABLET PO SCH (20:46)
[2022-11-11 21:04] VITALS: BP 115/58; TEMP 98.6; O2SAT 95
[2022-11-12] MEDS: VANCOMYCIN FOR PO/GT/NG USE PO SCH ×5 (00:01→23:14)
[2022-11-12 00:27] VITALS: BP 124/60; TEMP 98.8; O2SAT 95
--- NOTE | 2022-11-12 05:14 | NUR ---
Patient slept since admission. No complain of N/V or any pain. NSR on tele with Hr of 60/min. IV site on left FA intact and patent. IVF infusing. Safety measure maintained and call light within reached. Addendum: 11/12/22 at 0515 by SY BATISTA RN wrong patient
--- NOTE | 2022-11-12 05:15 | NUR ---
Isolation precaution maintained. Seizure precaution maintained. NSR on tele with HR of 64/min. LBM x1 large amount. Denies any pain or SOB. IVF infusing. Needs attended to and met. Safety measure maintained and call light within reached.
--- NOTE | 2022-11-12 05:18 | NUR ---
Miller catheter intact and draining via gravity. Miller catheter care done.
[2022-11-12 05:23] VITALS: BP 143/63; TEMP 98.1; O2SAT 95
[2022-11-12] MEDS: IV NS 1000 ML 1,000 ML IV PRN ×2 (05:51→22:30)
[2022-11-12] MEDS: PANTOPRAZOLE SODIUM 40 MG TABLET.DR PO SCH (06:05)
[2022-11-12 06:35] LABS: HEMATOCRIT 28.2 % (36.7-47.1); MEAN CORPUSCULAR HEMOGLOBIN 21.3 uug (23.8-33.4); MEAN CORPUSCULAR VOLUME 66.3 fL (73.0-96.2); PLATELET COUNT (AUTO) 334 K/uL (152-348)
[2022-11-12] MEDS: BLOOD SUGAR DIAGNOSTIC 1 EACH STRIP VI SCH ×4 (06:36→20:42)
[2022-11-12 06:54] LABS: CARBON DIOXIDE 28 mmol/L (21-32); CHLORIDE 104 mmol/L (98-107); CREATININE 0.9 mg/dL (0.6-1.3); MAGNESIUM 1.7 mg/dL (1.8-2.4); PHOSPHOROUS 2.2 mg/dL (2.5-4.9); POTASSIUM 3.1 mmol/L (3.5-5.1); UREA NITROGEN, BLOOD 9 mg/dL (7-18)
--- NOTE | 2022-11-12 07:30 | NUR ---
RECEIVED PATIENT AWAKE ALERT AND SPEAKS FARSI ONLY, REQUIRES CONFIGURATION CONSULTANT. NO SS OF ACUTE PAIN OR SOB SR ON MONITOR
[2022-11-12 08:00] VITALS: BP 129/62; TEMP 98.6; O2SAT 96
--- NOTE | 2022-11-12 08:00 | NUR ---
SEEN BY DR PEREZ FOR NEPHRO F/U SEE NOTES
[2022-11-12] MEDS: levETIRAcetam 500 MG TABLET PO SCH ×2 (08:45→20:34)
[2022-11-12] MEDS: DUTASTERIDE 0.5 MG CAPSULE PO SCH (08:45)
[2022-11-12] MEDS: METOPROLOL TARTRATE 25 MG TABLET PO SCH ×2 (08:45→20:37)
[2022-11-12] MEDS: glipiZIDE 5 MG TABLET PO SCH ×2 (08:45→17:11)
[2022-11-12] MEDS: ASPIRIN 81 MG TAB.CHEW PO SCH (08:45)
[2022-11-12] MEDS: MUPIROCIN 2% OINT 22 GM TUBE NS SCH ×2 (08:46→20:44)
[2022-11-12] MEDS: ENSURE ENLIVE (VAN) 240 ML LIQUID PO SCH ×2 (08:47→11:42)
[2022-11-12] MEDS: SODIUM HYPOCHLORITE 0.125% (QUARTER STRENGTH) 473 ML BOTTLE TP SCH ×2 (08:48→20:40)
[2022-11-12] MEDS: CLOTRIMAZOLE 1% CREAM 30 GM TUBE TOP SCH ×2 (08:48→20:39)
[2022-11-12] MEDS: MAGNESIUM SULFATE/D5W 100 ML IV SCH ×2 (09:47→11:10)
[2022-11-12] MEDS ORDERED: POTASSIUM CHLORIDE 20 MEQ TAB.PRT.SR PO ONE (10:30)
--- NOTE | 2022-11-12 11:00 | NUR ---
DR RAMIREZ NOTED MORNING LABS WITH LOW K, PHOS, MG REPLACEMENT GIVEN. SEE NOTES
[2022-11-12] MEDS: INSULIN REGULAR, HUMAN 300 UNIT/3 ML VIAL SQ PRN ×2 (11:40→17:00)
[2022-11-12 11:59] VITALS: BP 123/54; TEMP 98; O2SAT 96
--- NOTE | 2022-11-12 15:56 | NUR ---
CONTINUE ANTIBIOTIC ORDERED, ISOLATION FOR MRSA NARES, C-DIFF. 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
[2022-11-12] MEDS ORDERED: NEUTRA PHOS PACKET PO ONE (16:00)
[2022-11-12 16:31] VITALS: BP 122/60; TEMP 97.6; O2SAT 96
[2022-11-12] MEDS: GLUCERNA SHAKE 237 ML CAN PO SCH (17:08)
[2022-11-12] MEDS: THIAMINE HCL 100 MG TABLET PO SCH (20:34)
[2022-11-12] MEDS: LORATADINE 10 MG TABLET PO SCH (20:34)
[2022-11-12] MEDS: TAMSULOSIN HCL 0.4 MG CAP.SR.24H PO SCH (20:34)
[2022-11-12 22:18] VITALS: BP 144/63; TEMP 97.7; O2SAT 95
[2022-11-13 00:02] VITALS: BP 121/58; TEMP 97.8; O2SAT 95
--- NOTE | 2022-11-13 04:03 | NUR ---
Received patient in bed. Family at bedside. AAOx3. In no acute distress. Denies any pain or SOB. NSR on tele. Midline on left upper arm intact and patent. IVF infusing. Miller catheter intact and patent. Isolation precaution observed. Needs assessed and attended to. Safety measure initiated and call light within reached. Addendum: 11/13/22 at 0405 by SY BATISTA RN Nurses note for 11/12/22 at 1930.
[2022-11-13 04:05] VITALS: BP 145/58; TEMP 98.2; O2SAT 98
[2022-11-13] MEDS: VANCOMYCIN FOR PO/GT/NG USE PO SCH ×3 (05:08→17:13)
--- NOTE | 2022-11-13 05:19 | NUR ---
Isolation precaution maintained. Only had 1 LBM this shift. NSR on tele with HR of 63/min. Miller catheter intact and draining via gravity. Wound care provided to left 2nd toe wound. Needs attended to and met. Safety measure maintained and call light within reached.
[2022-11-13] MEDS: PANTOPRAZOLE SODIUM 40 MG TABLET.DR PO SCH (06:02)
[2022-11-13] MEDS: BLOOD SUGAR DIAGNOSTIC 1 EACH STRIP VI SCH ×4 (06:30→20:46)
[2022-11-13 07:34] LABS: HEMATOCRIT 28.7 % (36.7-47.1); MEAN CORPUSCULAR HEMOGLOBIN 21.8 uug (23.8-33.4); MEAN CORPUSCULAR VOLUME 67.6 fL (73.0-96.2); PLATELET COUNT (AUTO) 338 K/uL (152-348)
[2022-11-13] MEDS: INSULIN REGULAR, HUMAN 300 UNIT/3 ML VIAL SQ PRN ×3 (07:53→17:11)
[2022-11-13 07:54] LABS: ALANINE AMINOTRANSFERASE 22 U/L (16-63); ALKALINE PHOSPHATASE 59 U/L (50-136); ASPARTATE AMINOTRANSFERASE 24 U/L (15-37); BILIRUBIN,TOTAL 0.2 mg/dL (0.2-1.0); CARBON DIOXIDE 26 mmol/L (21-32); CHLORIDE 104 mmol/L (98-107); MAGNESIUM 1.4 mg/dL (1.8-2.4); PHOSPHOROUS 2.3 mg/dL (2.5-4.9); POTASSIUM 3.4 mmol/L (3.5-5.1); TOTAL PROTEIN, SERUM 5.7 g/dL (6.4-8.2); UREA NITROGEN, BLOOD 8 mg/dL (7-18)
--- NOTE | 2022-11-13 08:00 | NUR ---
PATIENT AWAKE ALERT AND ORIENTED X3, FARSI SPEAKING AND REQUIRES STOKER ERECTOR AND SERVICER. DENIES PAIN OR SIGNS OF DISTRESS. SR ON MONITOR
--- NOTE | 2022-11-13 09:00 | NUR ---
WOUND CARE TO RIGHT FOOT DONE ORDERED. GOOD PEDAL PULSES, NOTED WOUND LOOKS CLEAN, PINK IN COLOR, GRANULATING TISSUE NOTED.
[2022-11-13] MEDS: DUTASTERIDE 0.5 MG CAPSULE PO SCH (09:04)
[2022-11-13] MEDS: glipiZIDE 5 MG TABLET PO SCH ×2 (09:04→17:13)
[2022-11-13] MEDS: levETIRAcetam 500 MG TABLET PO SCH ×2 (09:05→20:29)
[2022-11-13] MEDS: METOPROLOL TARTRATE 25 MG TABLET PO SCH ×2 (09:05→20:29)
[2022-11-13] MEDS: SODIUM HYPOCHLORITE 0.125% (QUARTER STRENGTH) 473 ML BOTTLE TP SCH ×2 (09:06→20:46)
[2022-11-13] MEDS: CLOTRIMAZOLE 1% CREAM 30 GM TUBE TOP SCH ×2 (09:06→20:45)
[2022-11-13] MEDS: GLUCERNA SHAKE 237 ML CAN PO SCH ×2 (09:07→17:12)
[2022-11-13] MEDS: ASPIRIN 81 MG TAB.CHEW PO SCH (09:09)
--- NOTE | 2022-11-13 10:45 | NUR ---
DR PEREZ IN AND EXAMINED PATIENT FOR FOLLOW-UP SEE NOTES.
[2022-11-13] MEDS: IV NS 1000 ML 1,000 ML IV PRN (11:36)
[2022-11-13] MEDS ORDERED: MAGNESIUM OXIDE 400 MG TABLET PO ONE (12:45)
[2022-11-13] MEDS ORDERED: POTASSIUM PHOSPHATE MM 15 MMOL in IV NORMAL SALINE 250 ML IV ONE (13:00)
[2022-11-13 13:03] VITALS: BP 140/81; TEMP 98.2; O2SAT 95
--- NOTE | 2022-11-13 13:38 | NUR ---
PER DR OSORIO CTA CAN BE DONE ON TUESDAY IF OKAY WITH HOSPITALIST. DR RAMIREZ SAID OKAY FOR TUESDAY. PARKING MANAGER HENRRY FROM [facility] NOTIFIED AND WILL ARRANGE SCHEDULE FOR TUESDAY
[2022-11-13 16:29] VITALS: BP 130/61; TEMP 98.2; O2SAT 98
--- NOTE | 2022-11-13 17:53 | NUR ---
NO ACUTE CHANGE FROM MORNING ASSESSMENT SR ON MONITOR
[2022-11-13 20:00] VITALS: BP 130/61; TEMP 98.2; O2SAT 100
[2022-11-13] MEDS: TAMSULOSIN HCL 0.4 MG CAP.SR.24H PO SCH (20:28)
[2022-11-13] MEDS: LORATADINE 10 MG TABLET PO SCH (20:29)
[2022-11-13] MEDS: THIAMINE HCL 100 MG TABLET PO SCH (20:32)
[2022-11-14] VITALS: BP 146/60; TEMP 98.2; O2SAT 97
[2022-11-14] MEDS: VANCOMYCIN FOR PO/GT/NG USE PO SCH ×4 (00:02→17:27)
[2022-11-14] MEDS: HYDROCODONE/APAP 5-325MG TABLET PO PRN (03:59)
[2022-11-14 04:00] VITALS: BP 137/58; TEMP 98.3; O2SAT 95
[2022-11-14] MEDS: IV NS 1000 ML 1,000 ML IV PRN (06:01)
[2022-11-14] MEDS: PANTOPRAZOLE SODIUM 40 MG TABLET.DR PO SCH (06:02)
--- NOTE | 2022-11-14 06:29 | NUR ---
Patient remain stable, denies chest pain, no noted acute distress. ARMAAN midline intact and patent. Sinus rhythm on tele. Miller cath intact and patent draining to yellow color urine. Isolation precautions observed. Needs assessed and attended to.
[2022-11-14] MEDS: BLOOD SUGAR DIAGNOSTIC 1 EACH STRIP VI SCH ×3 (06:39→17:23)
[2022-11-14 06:40] LABS: HEMATOCRIT 28.2 % (36.7-47.1); MEAN CORPUSCULAR HEMOGLOBIN 21.8 uug (23.8-33.4); MEAN CORPUSCULAR VOLUME 67.2 fL (73.0-96.2); PLATELET COUNT (AUTO) 399 K/uL (152-348)
[2022-11-14 06:52] LABS: CARBON DIOXIDE 28 mmol/L (21-32); CHLORIDE 103 mmol/L (98-107); CREATININE 0.9 mg/dL (0.6-1.3); MAGNESIUM 1.3 mg/dL (1.8-2.4); PHOSPHOROUS 2.8 mg/dL (2.5-4.9); POTASSIUM 3.6 mmol/L (3.5-5.1); UREA NITROGEN, BLOOD 6 mg/dL (7-18)
--- NOTE | 2022-11-14 08:30 | NUR ---
Dr Nicholas Here to see patient. Gave report of CT angiogram resulted from 11/09/22. Pt ok to be dc for cardio standpoint. Will Await primary doctor for possible d/c. Pt alert and oriented x 4. ML flushing well on left arm IVF infusing as ordered. Tele SNR. Pt is in no acute distress.
[2022-11-14] MEDS: ASPIRIN 81 MG TAB.CHEW PO SCH (08:40)
[2022-11-14] MEDS: levETIRAcetam 500 MG TABLET PO SCH (08:40)
[2022-11-14] MEDS: DUTASTERIDE 0.5 MG CAPSULE PO SCH (08:40)
[2022-11-14] MEDS: glipiZIDE 5 MG TABLET PO SCH ×2 (08:42→17:27)
[2022-11-14] MEDS: GLUCERNA SHAKE 237 ML CAN PO SCH ×2 (08:42→17:23)
[2022-11-14] MEDS: METOPROLOL TARTRATE 25 MG TABLET PO SCH (08:50)
[2022-11-14] MEDS: CLOTRIMAZOLE 1% CREAM 30 GM TUBE TOP SCH (08:50)
[2022-11-14] MEDS: SODIUM HYPOCHLORITE 0.125% (QUARTER STRENGTH) 473 ML BOTTLE TP SCH (08:51)
[2022-11-14] MEDS: MAGNESIUM SULFATE/D5W 100 ML IV SCH ×3 (10:47→11:58)
[2022-11-14] MEDS: INSULIN REGULAR, HUMAN 300 UNIT/3 ML VIAL SQ PRN ×2 (11:46→17:28)
[2022-11-14 12:22] VITALS: BP 124/66; TEMP 98; O2SAT 99
[2022-11-14 16:01] VITALS: BP 132/70; TEMP 98.4; O2SAT 98
--- NOTE | 2022-11-14 17:00 | NUR ---
Dr malone here to see patient. Pt ok to be d/c home with family. CM already gone but left message with casemanagement that we will need a Home Health for Dressing Change. Pt is in no acute distress. Pictures taken for update. Dressing change on L foot 2nd digit as ordered. Noted no drainage on wound. Wound looks red and beefy texture. Pt tolerated wound dressing change. PT is in no acute distress.
[2022-11-14] MEDS ORDERED: VANC500V PO (18:46)
[2022-11-14] MEDS ORDERED: PANT40TA49 PO (18:46)
[2022-11-14] MEDS ORDERED: FERR324T17 PO (18:48)
--- NOTE | 2022-11-14 19:19 | NUR ---
Discharge instructions given to patient and daughter at bedside. Daughter verbalized understanding. IV midline left arm dc. Daughter states that they have their own Home Health. PT is in no acute distress upon discharge.
== END 2022-11-14 19:38 | disposition home health service (06) | DRG 871 ==
LOC: ER 19:01 → TELE3 23:07 → TRANSITION 11-06 14:50 → CCU 11-07 20:32 → TELE3 11-09 18:21
PROVIDERS: ADMIT Nurse Practitioner Acute Care; ATTEND Internal Medicine
PROC: 05HC33Z Insertion of Infusion Device into Left Basilic Vein, Percutaneous Approach (ICD-10-PCS; principal; 2022-11-06)
PROC: 05HC33Z Insertion of Infusion Device into Left Basilic Vein, Percutaneous Approach (ICD-10-PCS; 2022-11-10)
DX: A41.9 Sepsis, unspecified organism (principal); E43 Unspecified severe protein-calorie malnutrition; J15.9 Unspecified bacterial pneumonia; N17.0 Acute kidney failure with tubular necrosis; R65.21 Severe sepsis with septic shock; I21.A1 Myocardial infarction type 2; A04.72 Enterocolitis due to Clostridium difficile, not specified as recurrent; T87.44 Infection of amputation stump, left lower extremity; L03.116 Cellulitis of left lower limb; E87.1 Hypo-osmolality and hyponatremia; K92.2 Gastrointestinal hemorrhage, unspecified; E11.65 Type 2 diabetes mellitus with hyperglycemia; E87.6 Hypokalemia; G40.909 Epilepsy, unspecified, not intractable, without status epilepticus; E11.21 Type 2 diabetes mellitus with diabetic nephropathy; I25.10 Atherosclerotic heart disease of native coronary artery without angina pectoris; E11.51 Type 2 diabetes mellitus with diabetic peripheral angiopathy without gangrene; Z86.31 Personal history of diabetic foot ulcer; Z20.822 Contact with and (suspected) exposure to COVID-19; Z22.322 Carrier or suspected carrier of Methicillin resistant Staphylococcus aureus; I10 Essential (primary) hypertension; D63.8 Anemia in other chronic diseases classified elsewhere; D50.9 Iron deficiency anemia, unspecified; Z89.412 Acquired absence of left great toe; I08.1 Rheumatic disorders of both mitral and tricuspid valves
CPT/HCPCS: 36415; 36600; 70030-TC; 70450; 71045; 73130; 73620; 76770; 78580; 82378; 82803; 83550; 83605; 83735; 84100; 84132; 84295; 84443; 84484; 85025; 85730; 87040; 87806; 93005; 93307; A4663; A9540; G0378; J0692; J1644; J1815; J3370; J3475; J3490; J7040; J7050; Q9967